=== PATIENT | female | born 1995 | race Caucasian/White ===

== ENCOUNTER 2018-01-31 22:51 | Inpatient (IN) | payer BC ==
--- NOTE | 2018-01-31 23:23 | HP ---
General Information - General Information Maternal Age: 22 Grav: 2 Para: 1 SAB: 0 IEA: 0 Estimated Due Date: 02/08/18 Determined By: Early Ultrasound Gestational Age in Weeks and Days: 37 Weeks and 6 Days Maternal Blood Type and Rh: B Positive - Results this Serology/RPR Result: Non-Reactive Rubella Result: Non-Immune HBsAg Result: Negative HIV Result: Negative GBS Culture Result: Negative Past Medical History Delivery History: Hx Uncomplicated Vaginal Delivery Delivery History Comment: 2012 7lb 12oz female. Anne Oliva CNM Pertinent Past Medical History: See Records Past Medical History Comment: Hx migraine, eczema and GERD Pertinent Past Surgical History: See Records Past Surgical History Comment: Hx right hip surgery to correct a labral tear, cartilage damage and remove a bone spur Pertinent Family History: Non-Contributory - Antepartal Records Antepartal Records: Reviewed, Uncomplicated Review of Systems Constitutional: Uncomfortable CV Complaint: No Respiratory: Shortness of Breath: No Gastrointestinal: No Nausea/Vomiting, Normal Bowel Movement Genitourinary: No Dysuria, No Bleeding, No Leaking Fluid Musculoskeletal: Contractions Neurological: No Headache, No Visual Changes Movement: Normal Exam Allergies/Adverse Reactions: Allergies No Known Allergies Allergy (Verified 01/24/18 16:24) BP 127/77 HR 81 RR 18 - Measurements Height: 5 ft 4 in Weight: 156 lb Body Mass Index (BMI): 26.7 Pre- Weight: 130 lb - Exam Abdomen: No Upper Quadrant Pain Breast: Breast Exam Deferred CVA: No CVA Tenderness Extremities: No Edema Heart: Normal Rhythm/Heart Sounds HEENT: No Significant Findings Lungs: Clear Bilaterally Rectal: Rectal Exam Deferred Reflexes: DTR 2+ Thyroid: No Thyromegaly - Cervical Exam 2-3cm/80%/vtx -1 - Abdominal Exam Abdomen Exam: Non-Tender, Fundal Height Consistent with Dates Abdomen Exam Comment: UCs q 4-5 min. Moderate - Membranes Membrane Status: Intact - Ultrasound/Biophysical Profile Ultrasound Status: Not Done EFM Findings - External Monitor Findings Baseline Heart Rate: 135 External Monitor Findings: Accelerations Present, No Pattern of Variable or Late Decelerations, Variability Moderate, Baseline Stable External Monitor Findings Comment: No evidence of metabolic acidemia Contractions: Regular, Moderate, >90 Seconds Contraction Frequency: q 4-5 min Assessment/Plan - Reason for Visit Reason for Visit: IUP at 38-6/7 in labor - Obstetrical Risk Factors Risk Factors Comment: None - Plan Plan: Early Labor - Pt desires epidural with increased discomfort Plan Comment: Admit. Place IV. Plan epidural at pt request. Anticipate - Date/Time of Admission Date of Admission: 01/31/18 Time of Admission: 23:24
[2018-02-01] LABS: ABS Basophils 0.1 10^3/ul (0-0.2); ABS Eosinophils 0.1 10^3/ul (0-0.6); ABS Neutrophils 11.9 10^3/ul (1.5-7.7); ABS Nucleated RBC 0 10^3/ul; Eosinophil % 0.6 % (0-6); Hematocrit 33 % (35-47); Hemoglobin 11.5 g/dl (12.0-16.0); Lymphocyte % 13.5 % (25-47); Mean Corpuscular HGB Conc 35 g/dl (31-36); Mean Corpuscular Hemoglobin 32 pg (27-31); Mean Corpuscular Volume 91 fL (80-97); Mean Platelet Volume 9.4 um3 (7.4-10.4); Nucleated Red Blood Cells % 0.2; Platelet Count 201 10^3/ul (150-450); Red Blood Count 3.62 10^6/ul (4.0-5.4); Red Cell Distribution Width 13 % (10.5-15); White Blood Count 15.1 10^3/ul (3.5-10.8)
[2018-02-01] MEDS ORDERED: Phenylephrine IV* 40 MCG/ML 10 ML SYRINGE IV PUSH PRN ×2 (00:27)
[2018-02-01] MEDS ORDERED: Famotidine TAB* 20 MG PO PRN (00:27)
[2018-02-01] MEDS ORDERED: EPHEDrine (Pressors)* 50 MG/ML VIAL IV PUSH PRN ×2 (00:27)
[2018-02-01] MEDS ORDERED: Sodium Citrate/Citric Acid* 15 ML UDC PO PRN (00:27)
[2018-02-01] MEDS ORDERED: OBEPIDURAL* 250 ML EPIDURAL ONE (00:41)
[2018-02-01] MEDS ORDERED: OBEPIDURAL* 250 ML EPIDURAL SCH (01:00)
[2018-02-01] MEDS ORDERED: Oxytocin in LR* 20 UNITS/1,000 ML BAG IVPB ONE (07:01)
[2018-02-01] MEDS ORDERED: Misoprostol TAB* 200 MCG PR ONE (07:10)
[2018-02-01] MEDS ORDERED: Witch Hazel PAD* JAR TOPICAL PRN (07:10)
[2018-02-01] MEDS ORDERED: Glycerin ADULT SUPP PR PRN (07:10)
[2018-02-01] MEDS ORDERED: Acetaminophen TAB* 325 MG PO PRN (07:10)
[2018-02-01] MEDS ORDERED: Dibucaine 1% 28.35 GM TUBE PR PRN (07:10)
[2018-02-01] MEDS ORDERED: Oxytocin in LR* 20 UNITS/1,000 ML BAG IVPB SCH (08:00)
[2018-02-01] MEDS ORDERED: Simethicone TAB* 80 MG TAB.CHEW PO SCH (08:30)
[2018-02-01] MEDS ORDERED: Misoprostol TAB* 200 MCG ONE (09:19)
[2018-02-01] MEDS: Docusate CAP* 100 MG PO SCH ×3 (09:45→21:38)
[2018-02-01] MEDS: Ibuprofen TAB* 600 MG PO PRN ×2 (09:47→20:13)
[2018-02-02] MEDS ORDERED: Measles, Mumps,Rubella VACC* 0.5 ML/VIAL SUBCUT ONE (07:10)
[2018-02-02 07:35] LABS: ABS Basophils 0.1 10^3/ul (0-0.2); ABS Eosinophils 0.2 10^3/ul (0-0.6); ABS Lymphocytes 2.1 10^3/ul (1.0-4.8); ABS Neutrophils 10.8 10^3/ul (1.5-7.7); ABS Nucleated RBC 0 10^3/ul; Eosinophil % 1.6 % (0-6); Hematocrit 30 % (35-47); Hemoglobin 10.6 g/dl (12.0-16.0); Mean Corpuscular HGB Conc 35 g/dl (31-36); Mean Corpuscular Hemoglobin 32 pg (27-31); Mean Corpuscular Volume 90 fL (80-97); Mean Platelet Volume 9.2 um3 (7.4-10.4); Nucleated Red Blood Cells % 0; Platelet Count 159 10^3/ul (150-450); Red Blood Count 3.32 10^6/ul (4.0-5.4); Red Cell Distribution Width 13 % (10.5-15); White Blood Count 14.3 10^3/ul (3.5-10.8)
[2018-02-02 07:43] VITALS: BP 118/55
[2018-02-02] MEDS: Docusate CAP* 100 MG PO SCH (08:33)
[2018-02-02] MEDS ORDERED: Ferrous Gluconate TAB* 324 MG TAB PO SCH (09:00)
== END 2018-02-02 11:30 | disposition home or self-care (01) | DRG 560 ==
LOC: MCHOBOUT 22:51 → MCHOB 23:35
PROVIDERS: ADMIT Midwife; ATTEND Midwife
PROC: 10E0XZZ Delivery of Products of Conception, External Approach (ICD-10-PCS; principal; 2018-02-01)
PROC: 10907ZC Drainage of Amniotic Fluid, Therapeutic from Products of Conception, Via Natural or Artificial Opening (ICD-10-PCS; 2018-02-01)
DX: O77.0 Labor and delivery complicated by meconium in amniotic fluid (principal); O69.81X0 Labor and delivery complicated by cord around neck, without compression, not applicable or unspecified; L30.9 Dermatitis, unspecified; Z3A.39 39 weeks gestation of pregnancy; Z37.0 Single live birth
CPT/HCPCS: 36415; 85025; 86850; 86900; 86901; A9270-GY

== ENCOUNTER 2018-02-23 17:34 | Emergency (ER) | payer BC ==
[2018-02-23 18:45] VITALS: BP 111/71
[2018-02-23] MEDS ORDERED: Cephalexin CAP* 500 MG PO ONE (19:20)
--- NOTE | 2018-02-23 19:31 | UC ---
Complaint Female HPI - HPI Summary HPI Summary: Onset of dysuria, urinary frequency and urgency last night. No fever, nausea, back pain. Patient is 3 weeks and is still having a small amount of pinkish lochia. - History Of Current Complaint Chief Complaint: UCGU Stated Complaint: POSS UTI Time Seen by Provider: 02/23/18 19:04 Hx Obtained From: Patient Hx Last Menstrual Period: post 3 weeks Onset/Duration: Gradual Onset, Lasting Hours, Still Present Severity Initially: Moderate Severity Currently: Moderate Pain Intensity: 3 Pain Scale Used: 0-10 Numeric Character: Burning Aggravating Factor(s): Urination Alleviating Factor(s): Nothing Associated Signs And Symptoms: Positive: Vaginal Discharge - LOCHIA. Negative: Fever, Back Pain, Nausea - Allergies/Home Medications Allergies/Adverse Reactions: Allergies Allergy/AdvReac Type Severity Reaction Status Date / Time No Known Allergies Allergy Verified 02/23/18 18:45 Home Medications: Home Medications Pnv No.95/Ferrous Fum/Folic AC [ Tablet] 1 tab PO 02/23/18 [History] PMH/Surg Hx/FS Hx/Imm Hx Respiratory History: Asthma - Surgical History Surgical History: Yes Surgery Procedure, Year, and Place: rt hip - Family History Known Family History: Positive: Other - ALS Negative: Hypertension, Diabetes - Social History Alcohol Use: Occasionally Substance Use Type: None Smoking Status (MU): Former Smoker - Immunization History Most Recent Influenza Vaccination: 10/23/17 Most Recent Pneumonia Vaccination: n/a Review of Systems Constitutional: Negative Respiratory: Negative Cardiovascular: Negative Gastrointestinal: Abdominal Pain Genitourinary: Dysuria, Frequency, Urgency All Other Systems Reviewed And Are Negative: Yes Physical Exam Triage Information Reviewed: Yes Appearance: Well-Appearing, No Pain Distress, Well-Nourished Vital Signs: Initial Vital Signs Temp 97.9 F 02/23/18 18:42 Pulse 60 02/23/18 18:42 Resp 18 02/23/18 18:42 BP 111/71 02/23/18 18:42 Pulse Ox 99 02/23/18 18:42 Vital Signs Reviewed: Yes Eyes: Positive: Conjunctiva Clear ENT: Positive: Hearing grossly normal Neck: Positive: Supple Respiratory: Positive: No respiratory distress, No accessory muscle use Cardiovascular: Positive: Pulses Normal Abdomen Description: Positive: Nontender, Soft. Negative: CVA Tenderness (R), CVA Tenderness (L), Distended, Guarding Musculoskeletal: Positive: No Edema Neurological: Positive: Alert Psychological: Positive: Age Appropriate Behavior Skin: Negative: rashes Diagnostics - Laboratory Diagnostic Studies Completed/Ordered: URINE DIP SP. GR. 1.030, 2+ PROTEIN, 2+ BLOOD, 1+ LEUKS Complaint Female Dx - Course Course Of Treatment: Keflex for UTI. Urine sent for culture. Diflucan if needed for antibiotic associated yeast infection. Follow-up if not improving as expected. - Differential Dx/Diagnosis Provider Diagnoses: UTI Discharge - Sign-Out/Discharge Documenting (check all that apply): Discharge - Discharge Plan Condition: Stable Disposition: HOME Prescriptions: Cephalexin CAP* [Keflex 500 CAP*] 500 mg PO BID #13 cap Fluconazole [Diflucan] 1 tab PO ONCE #2 tab Patient Education Materials: Urinary Tract Infection in Women (ED) Referrals: Salas Hawley, [employer] [Primary Care Provider] - If Needed Additional Instructions: Take the antibiotic twice daily for the full 7 days. Stay well hydrated. Ibuprofen or Tylenol for discomfort. We will call you if your treatment needs to be changed based on urine culture results. Seek follow-up if you're not improving as expected with treatment. - Billing Disposition and Condition Condition: STABLE Disposition: HOME
--- NOTE | 2018-02-26 15:45 | UC ---
- Progress Note Progress Note: Urine final results with E.coli and GBS - both susceptible to Keflex. No change. Discharge - Sign-Out/Discharge Documenting (check all that apply): Post-Discharge Follow Up - Discharge Plan Condition: Stable Disposition: HOME Prescriptions: Cephalexin CAP* [Keflex 500 CAP*] 500 mg PO BID #13 cap Fluconazole [Diflucan] 1 tab PO ONCE #2 tab Patient Education Materials: Urinary Tract Infection in Women (ED) Referrals: Salas Hawley [employer] [Primary Care Provider] - If Needed Additional Instructions: Take the antibiotic twice daily for the full 7 days. Stay well hydrated. Ibuprofen or Tylenol for discomfort. We will call you if your treatment needs to be changed based on urine culture results. Seek follow-up if you're not improving as expected with treatment. - Billing Disposition and Condition Condition: STABLE Disposition: HOME
== END 2018-02-23 19:39 | disposition home or self-care (01) ==
LOC: UCEAST 17:34
DX: N39.0 Urinary tract infection, site not specified (principal); B96.20 Unspecified Escherichia coli [E. coli] as the cause of diseases classified elsewhere; B95.1 Streptococcus, group B, as the cause of diseases classified elsewhere; J45.909 Unspecified asthma, uncomplicated; Z87.891 Personal history of nicotine dependence
CPT/HCPCS: 81003; 87077; 87086; 87186; 99212; A9270-GY; G0463